=== PATIENT | male | born 1950 | race Caucasian/White ===

== ENCOUNTER → 2016-06-19 | Outpatient (REF) | payer BC, MEDICARE ==
[2016-06-19 19:18] LABS: CALCIUM LEVEL 9.1 MG/DL (8.8-10.2); CREATININE FOR GFR 1.4 MG/DL (0.70-1.30); FREE T4 0.96 NG/DL (0.76-1.46); POTASSIUM SERUM 3.9 MEQ/L (3.5-5.1); URIC ACID 4.2 MG/DL (3.5-7.2)
== END ==
LOC: M LABDRAW1 15:59
PROVIDERS: ATTEND Family Medicine
DX: E11.65 Type 2 diabetes mellitus with hyperglycemia (principal); N18.3 Chronic kidney disease, stage 3 (moderate)

== ENCOUNTER → 2016-07-03 | Outpatient (CLI) | payer MEDICARE ==
--- NOTE | 2016-07-03 11:25 | REP ---
Thyroid ultrasound: The right lobe is upper normal size measuring 4.9 x 2.2 x 1.3 cm. The left lobe is enlarged measuring 5.4 x 2.3 x 2.3 cm. The isthmus is thickened measuring 7.9 mm. Right lobe: There are two nodules, one at the mid pole measuring up to 1.4 cm and one just inferior to this measuring 0.4 cm. Left lobe: There are at least four nodules, two in the upper pole measuring 0.3 cm and 0.5 cm, one at the mid pole measuring 2.1 cm (complex) and one in the lower pole measuring 1.5 cm. Isthmus: There is a 0.4 cm nodule. Impression: Enlarged thyroid with multiple nodules compatible with the clinical impression. Signed by Thor Pérez MD 07/03/2016 11:16 A
== END ==
LOC: M RAD 09:28
PROVIDERS: ATTEND Family Medicine
DX: E04.2 Nontoxic multinodular goiter (principal)

== ENCOUNTER → 2016-11-11 | Outpatient (CLI) | payer MEDICARE ==
[2016-11-11 17:58] LABS: CALCIUM LEVEL 8.9 MG/DL (8.8-10.2); CREATININE FOR GFR 1.43 MG/DL (0.70-1.30); FREE T4 1.05 NG/DL (0.76-1.46); GLOMERULAR FILTRATION RATE 52.5 (>49); POTASSIUM SERUM 3.8 MEQ/L (3.5-5.1)
== END ==
LOC: M WUC 15:43
PROVIDERS: ATTEND Family Medicine
DX: E11.65 Type 2 diabetes mellitus with hyperglycemia (principal); R60.0 Localized edema

== ENCOUNTER → 2016-11-23 | Outpatient (CLI) | payer MEDICARE ==
--- NOTE | 2016-11-23 17:32 | REP ---
Chest x-ray: Two views: History: Meniscal tear. Comparison study: 04/24/2005. Findings: A levoconvex moderate scoliotic curve is seen in the thoracic spine along with some degenerative change. The heart is not enlarged. Lungs are well inflated and clear. Pleural angles are sharp. Pulmonary vasculature is not increased. No other bony abnormality. Impression: Levoconvex thoracic scoliotic curve. Otherwise no active disease. Signed by Madi Mathew MD 11/24/2016 08:30 A
== END ==
LOC: M RAD 16:01
PROVIDERS: ATTEND Family Medicine
DX: R05 Cough (principal); S83.206A Unspecified tear of unspecified meniscus, current injury, right knee, initial encounter; Y93.9 Activity, unspecified; X58.XXXA Exposure to other specified factors, initial encounter; Y92.89 Other specified places as the place of occurrence of the external cause

== ENCOUNTER → 2016-12-08 | Outpatient (REF) | payer MEDICARE | LOC: M LAB REF 11:28 | PROVIDERS: ATTEND Internal Medicine Endocrinology, Diabetes & Metabolism | DX: E04.2 Nontoxic multinodular goiter (principal) ==

== ENCOUNTER → 2017-01-23 | Outpatient (CLI) | payer MEDICARE ==
[2017-01-23 19:40] LABS: BASO # 0.1 10^3/uL (0.0-0.2); BASO % 0.5 % (0.0-1.0); EOS # 0.3 10^3/uL (0.0-0.50); EOS % 2.6 % (0.0-3.0); IMMATURE GRANULOCYTE % 0.6 % (0-0); LYMPH # 3.2 10^3/uL (1.5-4.5); LYMPH % 31.9 % (24.0-44.0); MEAN CORPUSCULAR HGB CONC 35.4 g/dl (32.0-36.5); MEAN CORPUSCULAR VOLUME 81.8 fl (80.0-96.0); MONO # 0.8 10^3/uL (0.0-0.8); MONO % 7.6 % (0.0-5.0); NEUTROPHILS # 5.7 10^3/uL (1.8-7.7); NEUTROPHILS % 56.8 % (36.0-66.0); PLATELET COUNT, AUTOMATED 162 10^3/uL (150-450); RED CELL DISTRIBUTION WIDTH 12.5 % (11.5-14.5)
[2017-01-23 20:06] LABS: ALBUMIN 3.7 GM/DL (3.2-5.2); ALBUMIN/GLOBULIN RATIO 1.09 (1.00-1.93); BILIRUBIN,TOTAL 0.4 MG/DL (0.2-1.0); CALCIUM LEVEL 9.6 MG/DL (8.8-10.2); CREATININE FOR GFR 1.42 MG/DL (0.70-1.30); GLOMERULAR FILTRATION RATE 52.9 (>49); MAGNESIUM LEVEL 2.1 MG/DL (1.8-2.4); POTASSIUM SERUM 4.2 MEQ/L (3.5-5.1); TOTAL PROTEIN 7.1 GM/DL (6.4-8.2)
== END ==
LOC: M WUC 16:16
PROVIDERS: ATTEND Family Medicine
DX: R53.82 Chronic fatigue, unspecified (principal); E11.65 Type 2 diabetes mellitus with hyperglycemia

== ENCOUNTER → 2017-08-28 | Outpatient (CLI) | payer MEDICARE | LOC: M RAD 14:38 | DX: R07.81 Pleurodynia (principal) | CPT/HCPCS: 72072 ==

== ENCOUNTER → 2017-09-27 | Outpatient (CLI) | payer MEDICARE | LOC: M RAD 07:27 | DX: N43.3 Hydrocele, unspecified (principal); N28.1 Cyst of kidney, acquired | CPT/HCPCS: 76705 ==

== ENCOUNTER → 2017-11-01 | Outpatient (CLI) | payer MEDICARE | LOC: M RAD 17:09 | DX: M25.462 Effusion, left knee (principal) | CPT/HCPCS: 73564 ==

== ENCOUNTER → 2017-11-05 | Outpatient (CLI) | payer MEDICARE ==
[~2017-11-05] MED LIST: BUPIVACAINE HCL 0.25% 10 ML VIAL As Ordered; BUPIVACAINE HCL 0.25% 30 ML VIAL As Ordered; TRIAMCINOLONE ACETONIDE SUSP 40 MG/ML VIAL (J3301) As Ordered; diazePAM 5 MG TAB As Ordered; oxyCODONE 5MG TAB As Ordered
== END ==
LOC: M PAIN 14:45
DX: M79.1 Myalgia (principal); M54.5 Low back pain; N40.1 Benign prostatic hyperplasia with lower urinary tract symptoms; E11.9 Type 2 diabetes mellitus without complications; R32 Unspecified urinary incontinence; N32.89 Other specified disorders of bladder; Z79.82 Long term (current) use of aspirin; Z79.84 Long term (current) use of oral hypoglycemic drugs; Z79.899 Other long term (current) drug therapy
CPT/HCPCS: J3301

== ENCOUNTER → 2017-11-14 | Outpatient (CLI) | payer MEDICARE ==
[2017-11-14 20:54] LABS: PSA SCREENING 0.88 NG/ML (< 4.0)
== END ==
LOC: M LAB 15:52
DX: Z12.5 Encounter for screening for malignant neoplasm of prostate (principal)
CPT/HCPCS: G0103

== ENCOUNTER → 2017-11-14 | Outpatient (CLI) | payer MEDICARE | LOC: M RAD 14:28 | DX: M51.34 Other intervertebral disc degeneration, thoracic region (principal); M25.78 Osteophyte, vertebrae; Z12.5 Encounter for screening for malignant neoplasm of prostate | CPT/HCPCS: 72146 ==

== ENCOUNTER → 2017-11-21 | Outpatient (CLI) | payer MEDICARE | LOC: M PAIN 13:30 | DX: R07.81 Pleurodynia (principal); M79.1 Myalgia; M94.0 Chondrocostal junction syndrome [Tietze]; E11.9 Type 2 diabetes mellitus without complications; Z79.82 Long term (current) use of aspirin; Z79.84 Long term (current) use of oral hypoglycemic drugs; Z79.899 Other long term (current) drug therapy | CPT/HCPCS: G0463 ==

== ENCOUNTER → 2017-12-05 | Outpatient (REF) | payer MEDICARE ==
[2017-12-05 20:12] LABS: CRYSTALS, BODY FLUID NONE SEEN (NONE SEEN); SOURCE, BODY FLUID CRYSTALS LFT KNEE
== END ==
LOC: M SFHCPLAZ 19:02
DX: M25.462 Effusion, left knee (principal)
CPT/HCPCS: 89060

== ENCOUNTER → 2018-02-05 | Outpatient (REF) | payer MEDICARE ==
[2018-02-05 13:51] LABS: ANION GAP 12 MEQ/L (8-16); BLOOD UREA NITROGEN 22 MG/DL (7-18); CALCIUM LEVEL 9.9 MG/DL (8.8-10.2); CARBON DIOXIDE LEVEL 22 MEQ/L (21-32); CHLORIDE LEVEL 103 MEQ/L (98-107); CREATININE FOR GFR 1.17 MG/DL (0.70-1.30); GLOMERULAR FILTRATION RATE > 60.0 (>49); GLUCOSE, FASTING 151 MG/DL (70-100); POTASSIUM SERUM 3.7 MEQ/L (3.5-5.1); SODIUM LEVEL 137 MEQ/L (136-145)
[2018-02-05 13:54] LABS: MALB URINE SIEMENS 10.3 MG/L
[2018-02-05 14:02] LABS: MAU/CREAT RATIO 5.3 MCG/MG (0.0-30.0)
[2018-02-05 14:38] LABS: ESTIMATED AVERAGE GLUCOSE 146 MG/DL (60-110); HEMOGLOBIN A1c 6.7 %
== END ==
LOC: M SFHCPLAZ 10:32
DX: E11.22 Type 2 diabetes mellitus with diabetic chronic kidney disease (principal); Z23 Encounter for immunization
CPT/HCPCS: 83036

== ENCOUNTER → 2018-07-08 | Outpatient (CLI) | payer MEDICARE ==
[2018-07-08 15:58] LABS: CALCIUM LEVEL 9.1 MG/DL (8.8-10.2); CREATININE FOR GFR 1.33 MG/DL (0.70-1.30); GLOMERULAR FILTRATION RATE 56.9 (>49); POTASSIUM SERUM 3.6 MEQ/L (3.5-5.1)
[2018-07-08 16:10] LABS: HEMOGLOBIN A1c 7.5 %
[2018-07-08 17:49] LABS: MALB URINE SIEMENS 9.3 MG/L; MAU/CREAT RATIO 4.5 MCG/MG (0.0-30.0)
== END ==
LOC: M LAB 14:50
PROVIDERS: ATTEND Family Medicine
DX: E11.22 Type 2 diabetes mellitus with diabetic chronic kidney disease (principal)
CPT/HCPCS: 36415; 80048; 82043; 83036; 84403; G0103

== ENCOUNTER → 2019-01-05 | Outpatient (CLI) | payer MEDICARE ==
--- NOTE | 2019-01-05 16:38 | REP ---
PA and lateral chest: Comparison is a 2016. The lung villalobos are hyperinflated. This is unchanged. Lung villalobos otherwise clear. Cardiac size is normal. The jed, mediastinum, skeletal structures are unchanged. There is thoracic scoliosis convex left, unchanged. Impression: There are no acute cardiopulmonary findings. There is chronic hyperinflation. There is chronic thoracic scoliosis convex left. Electronically Signed by Thor Pérez MD 01/05/2019 04:29 P
== END ==
LOC: M LAB 16:03
PROVIDERS: ATTEND Family Medicine
DX: R05 Cough (principal)

== ENCOUNTER → 2019-01-14 | Outpatient (CLI) | payer MEDICARE ==
[~2019-01-14] MED LIST changes: -BUPIVACAINE HCL 0.25% 10 ML VIAL As Ordered; -BUPIVACAINE HCL 0.25% 30 ML VIAL As Ordered; +ISOVUE-370 76% 100ML VIAL (Q9967) As Ordered ONE; -TRIAMCINOLONE ACETONIDE SUSP 40 MG/ML VIAL (J3301) As Ordered; -diazePAM 5 MG TAB As Ordered; -oxyCODONE 5MG TAB As Ordered
[2019-01-14 13:37] LABS: IONIZED CALCIUM 4.9 MG/DL (4.5-5.3)
[2019-01-14 14:08] LABS: BLOOD UREA NITROGEN 24 MG/DL (7-18); C REACTIVE PROTEIN QUANTITATIV < 0.30 MG/DL (0.00-0.30); CALCIUM LEVEL 9.8 MG/DL (8.8-10.2); CARBON DIOXIDE LEVEL 25 MEQ/L (21-32); CHLORIDE LEVEL 105 MEQ/L (98-107); CPK CREATINE PHOSPHOKINASE 71 U/L (39-308); CREATININE FOR GFR 1.65 MG/DL (0.70-1.30); GLOMERULAR FILTRATION RATE 44.3 (>49); GLUCOSE, FASTING 335 MG/DL (70-100); MAGNESIUM LEVEL 1.8 MG/DL (1.8-2.4); SODIUM LEVEL 137 MEQ/L (136-145); TROPONIN I < 0.02 NG/ML (< 0.10)
--- NOTE | 2019-01-14 15:15 | REP ---
CT PULMONARY ANGIOGRAM: WITH IV CONTRAST. HISTORY: Chest pain. Evaluate for pulmonary embolus or dissection. No comparison chest CT. COMPARISON STUDIES: No comparison chest CT. CONTRAST DOSE: 65 mL of Isovue [address] TECHNIQUE: Helical scanning is acquired and overlapping 1.5 mm and contiguous 3 mm axial images are reformatted. In addition, maximum intensity projection and multiplanar re-formation images are generated in sagittal and coronal imaging projections. CT PULMONARY ANGIOGRAPHIC FINDINGS: There is good opacification in the pulmonary arterial tree. No vessel cutoff or filling defect is seen. There is no CT evidence of pulmonary embolism. Thoracic aorta enhances homogeneously without evidence of aneurysm or dissection. There is some vascular calcification in the left coronary artery distribution. There are small bilateral pleural effusions. There is a small fluid collection just posterior to the anterior aspect of the aortic arch, consistent with pericardial recess. No hilar or mediastinal mass is seen. There is a low-density area in the left thyroid lobe which extends into the thoracic inlet. There is a densely calcified nodule in the right thyroid. There is a small sliding hiatal hernia. There is a cyst in the upper pole of the left kidney which measures 4.3 cm in greatest diameter. No adrenal lesion is seen. Incidental note is made of splenomegaly, 15.4 cm in greatest diameter. The liver is felt to be enlarged as well with greater than 17.1 cm vertical span in the midclavicular line extending off the edge of the field of view. No focal hepatic or splenic lesion is seen. No pulmonary mass or significant nodule is appreciated. A levoconvex thoracic scoliosis is seen. IMPRESSION: No CT evidence of pulmonary embolus. Hepatosplenomegaly. Small bilateral pleural effusions. Left renal cyst. Bilateral thyroid nodules. Electronically Signed by Madi Mathew MD 01/14/2019 06:49 P
[2019-01-15 11:08] LABS: HEPATITIS C VIRUS ABY INDEX 0.1 INDEX (<0.8)
== END ==
LOC: M RAD 12:53
PROVIDERS: ATTEND Family Medicine
DX: J90 Pleural effusion, not elsewhere classified (principal); N28.1 Cyst of kidney, acquired; E04.1 Nontoxic single thyroid nodule; M62.81 Muscle weakness (generalized); Z11.59 Encounter for screening for other viral diseases
CPT/HCPCS: 36415; 71275; 80048; 82330; 82550; 83735; 84484; 85379; 85652; 86140; 86803; Q9967

== ENCOUNTER → 2019-01-22 | Outpatient (CLI) | payer MEDICARE ==
[2019-01-22 12:04] LABS: ALBUMIN 3.6 GM/DL (3.2-5.2); ALT/SGPT 49 U/L (12-78); BILIRUBIN,TOTAL 0.6 MG/DL (0.2-1.0); BLOOD UREA NITROGEN 31 MG/DL (7-18); CALCIUM LEVEL 10.1 MG/DL (8.8-10.2); CARBON DIOXIDE LEVEL 26 MEQ/L (21-32); CHLORIDE LEVEL 104 MEQ/L (98-107); CREATININE FOR GFR 1.59 MG/DL (0.70-1.30); GLOMERULAR FILTRATION RATE 46.2 (>49); GLUCOSE, FASTING 288 MG/DL (70-100); NT-PRO BNP 11 PG/ML (<125); SODIUM LEVEL 139 MEQ/L (136-145); TOTAL PROTEIN 7.2 GM/DL (6.4-8.2); TROPONIN I < 0.02 NG/ML (< 0.10)
== END ==
LOC: M LAB 10:16
PROVIDERS: ATTEND Family Medicine
DX: R16.2 Hepatomegaly with splenomegaly, not elsewhere classified (principal); N17.9 Acute kidney failure, unspecified; J90 Pleural effusion, not elsewhere classified; R07.9 Chest pain, unspecified

== ENCOUNTER → 2019-06-11 | Outpatient (REF) | payer MEDICARE | LOC: M LAB REF 19:27 | PROVIDERS: ATTEND Dermatology | DX: D23.30 Other benign neoplasm of skin of unspecified part of face (principal) ==

== ENCOUNTER → 2019-06-19 | Outpatient (CLI) | payer MEDICARE ==
--- NOTE | 2019-06-19 13:32 | REP ---
PANOREX MANDIBLE: SINGLE VIEW. HISTORY: Comparison is made with CT images of the soft tissues of the neck from July 03, 2017. FINDINGS: Heavily eroded carious teeth are noted in the mandible and maxilla. There are eight remaining mandibular teeth all of which are eroded to one degree or another. There are six remain maxillary teeth visible which are also heavily eroded. There is subtle radiolucency associated with the left mandibular canine and first bicuspid tooth roots. No other bony destructive lesion is visible. IMPRESSION: Multiple carious teeth. Small periapical radiolucencies associated with two of the mandibular teeth on the left. Electronically Signed by Madi Mathew MD 06/19/2019 02:54 P
== END ==
LOC: M RAD 11:37
PROVIDERS: ATTEND Dermatology
DX: K04.6 Periapical abscess with sinus (principal); Z79.899 Other long term (current) drug therapy

== ENCOUNTER → 2019-06-19 | Outpatient (REF) | payer MEDICARE ==
[2019-06-19 12:33] LABS: MALB URINE SIEMENS 8.1 MG/L; MAU/CREAT RATIO 6.6 MCG/MG (0.0-30.0)
[2019-06-19 14:03] LABS: ALBUMIN 3.6 GM/DL (3.2-5.2); ALT/SGPT 45 U/L (12-78); BLOOD UREA NITROGEN 17 MG/DL (7-18); CALCIUM LEVEL 9.3 MG/DL (8.8-10.2); CARBON DIOXIDE LEVEL 28 MEQ/L (21-32); CHLORIDE LEVEL 107 MEQ/L (98-107); CREATININE FOR GFR 1.14 MG/DL (0.70-1.30); GLOMERULAR FILTRATION RATE > 60.0 (>49); GLUCOSE, FASTING 207 MG/DL (70-100); LIPASE 247 U/L (73-393); NT-PRO BNP 33 PG/ML (<125); POTASSIUM SERUM 3.6 MEQ/L (3.5-5.1); SODIUM LEVEL 139 MEQ/L (136-145); TOTAL PROTEIN 6.9 GM/DL (6.4-8.2)
[2019-06-19 14:06] LABS: TESTOSTERONE 331 NG/DL (241-827)
[2019-06-19 14:12] LABS: HEMOGLOBIN A1c 8.2 %
[2019-06-20 10:12] LABS: HEPATITIS C VIRUS ABY INDEX 0.1 INDEX (<0.8)
== END ==
LOC: M SFHCPLAZ 10:08
PROVIDERS: ATTEND Family Medicine
DX: R05 Cough (principal); E11.22 Type 2 diabetes mellitus with diabetic chronic kidney disease; N32.81 Overactive bladder; Z13.228 Encounter for screening for other metabolic disorders; Z11.59 Encounter for screening for other viral diseases; R53.82 Chronic fatigue, unspecified

== ENCOUNTER → 2019-09-22 | Outpatient (CLI) | payer MEDICARE ==
[2019-09-22 17:08] LABS: HEMOGLOBIN A1c 7.3 %
[2019-09-22 17:15] LABS: CALCIUM LEVEL 9.9 MG/DL (8.8-10.2); CREATININE FOR GFR 1.3 MG/DL (0.70-1.30); GLOMERULAR FILTRATION RATE 58.1 (>42); POTASSIUM SERUM 3.9 MEQ/L (3.5-5.1)
== END ==
LOC: M LAB 16:00
PROVIDERS: ATTEND Family Medicine
DX: E11.22 Type 2 diabetes mellitus with diabetic chronic kidney disease (principal)

== ENCOUNTER → 2020-02-17 | Outpatient (REF) | payer MEDICARE | LOC: M SFHCPLAZ 16:40 | PROVIDERS: ATTEND Family Medicine | DX: N40.0 Benign prostatic hyperplasia without lower urinary tract symptoms (principal); E11.9 Type 2 diabetes mellitus without complications ==

== ENCOUNTER → 2020-05-14 | Outpatient (CLI) | payer MEDICARE ==
[2020-05-14 15:42] LABS: HEMOGLOBIN A1c 6.3 %
[2020-05-14 15:45] LABS: CALCIUM LEVEL 9.8 MG/DL (8.8-10.2); CREATININE FOR GFR 1.41 MG/DL (0.70-1.30); GLOMERULAR FILTRATION RATE 52.9 (>42); POTASSIUM SERUM 3.6 MEQ/L (3.5-5.1)
[2020-05-14 15:55] LABS: MALB URINE SIEMENS 22.8 MG/L; MAU/CREAT RATIO 5.3 MCG/MG (0.0-30.0)
== END ==
LOC: M LAB 14:46
PROVIDERS: ATTEND Family Medicine
DX: N40.0 Benign prostatic hyperplasia without lower urinary tract symptoms (principal); E11.9 Type 2 diabetes mellitus without complications
CPT/HCPCS: 36415; 80048; 80061; 82043; 83036; G0103

== ENCOUNTER → 2020-05-18 | Outpatient (REF) | payer MEDICARE | LOC: M SFHCPLAZ 14:41 | PROVIDERS: ATTEND Family Medicine | DX: E11.9 Type 2 diabetes mellitus without complications (principal) ==

== ENCOUNTER → 2020-08-18 | Outpatient (CLI) | payer MEDICARE ==
[2020-08-18 15:33] LABS: HEMOGLOBIN A1c 6.3 %
[2020-08-18 15:41] LABS: BLOOD UREA NITROGEN 20 MG/DL (7-18); CALCIUM LEVEL 9.3 MG/DL (8.8-10.2); CARBON DIOXIDE LEVEL 25 MEQ/L (21-32); CHLORIDE LEVEL 109 MEQ/L (98-107); CREATININE FOR GFR 1.18 MG/DL (0.70-1.30); GLOMERULAR FILTRATION RATE > 60.0 (>42); GLUCOSE, FASTING 145 MG/DL (70-100); SODIUM LEVEL 142 MEQ/L (136-145)
== END ==
LOC: M LAB 14:45
PROVIDERS: ATTEND Family Medicine
DX: E11.9 Type 2 diabetes mellitus without complications (principal)

== ENCOUNTER → 2020-10-18 | Outpatient (CLI) | payer MEDICARE ==
--- NOTE | 2020-10-18 15:17 | REP ---
INDICATION: OTHER CHEST PAIN. COMPARISON: Comparison chest x-ray January 05, 2019. TECHNIQUE: Two views.. FINDINGS: The lungs are well inflated and free of infiltrate. The pleural angles are sharp. The heart size is normal. Pulmonary vasculature is not increased. No significant bony abnormality is seen. There are degenerative disc changes and some scoliosis in the thoracic spine. IMPRESSION: No active disease.. <Electronically signed by Juventino Mathew > 10/18/20 [id number]
--- NOTE | 2020-10-18 15:24 | REP ---
INDICATION: OTHER CHEST PAIN. COMPARISON: Comparison chest x-ray January 05, 2019.. TECHNIQUE: Four views of the left ribcage. FINDINGS: There is a levoconvex thoracic scoliotic curve and there is degenerative disc disease in the mid and lower thoracic spine with fairly large osteophytes. Heart is not enlarged. Left lung is clear. There is osteoarthritis at the glenohumeral articulation of the left shoulder. Multiple views of the left ribcage demonstrate intact left ribs. No bony destructive lesion or rib fracture is seen. IMPRESSION: Scoliosis, degenerative disc disease in the thoracic spine, osteoarthritis of the left glenohumeral joint. Otherwise negative left rib radiographs. <Electronically signed by Juventino Mathew > 10/18/20 [id number]
== END ==
LOC: M PLAIMG 12:02
PROVIDERS: ATTEND Family Medicine
DX: M41.9 Scoliosis, unspecified (principal); M51.34 Other intervertebral disc degeneration, thoracic region; R07.89 Other chest pain

== ENCOUNTER → 2020-10-18 | Outpatient (REF) | payer MEDICARE | LOC: M SFHCPLAZ 11:22 | PROVIDERS: ATTEND Family Medicine | DX: E11.9 Type 2 diabetes mellitus without complications (principal); Z12.5 Encounter for screening for malignant neoplasm of prostate ==

== ENCOUNTER → 2021-01-05 | Outpatient (CLI) | payer MEDICARE ==
[2021-01-05 18:40] LABS: HEMOGLOBIN A1c 6.2 %
== END ==
LOC: M LAB 13:31
PROVIDERS: ATTEND Family Medicine
DX: Z12.5 Encounter for screening for malignant neoplasm of prostate (principal); E11.9 Type 2 diabetes mellitus without complications
CPT/HCPCS: 36415; 83036; G0103

== ENCOUNTER → 2021-08-11 | Outpatient (CLI) | payer MEDICARE ==
[2021-08-11 17:21] LABS: HEMOGLOBIN A1c 8.1 %
== END ==
LOC: M PLALAB 15:23
PROVIDERS: ATTEND Family Medicine
DX: M25.761 Osteophyte, right knee (principal); M25.762 Osteophyte, left knee; M51.37 Other intervertebral disc degeneration, lumbosacral region; E11.9 Type 2 diabetes mellitus without complications; M17.0 Bilateral primary osteoarthritis of knee; M76.32 Iliotibial band syndrome, left leg; Z12.5 Encounter for screening for malignant neoplasm of prostate
CPT/HCPCS: 36415; 72110; 73502; 73564; 83036; G0103

== ENCOUNTER → 2021-11-01 | Outpatient (CLI) | payer MEDICARE ==
[2021-11-01 15:04] LABS: ALBUMIN 3.4 GM/DL (3.2-5.2); BILIRUBIN,TOTAL 0.6 MG/DL (0.2-1.0); CALCIUM LEVEL 9.4 MG/DL (8.8-10.2); CREATININE FOR GFR 1.29 MG/DL (0.70-1.30); GLOMERULAR FILTRATION RATE 58.3 (>42); POTASSIUM SERUM 3.5 MEQ/L (3.5-5.1); TOTAL PROTEIN 6.6 GM/DL (6.4-8.2)
== END ==
LOC: M LAB 13:16
PROVIDERS: ATTEND Student in an Organized Health Care Education/Training Program
DX: R82.2 Biliuria (principal)

== ENCOUNTER → 2021-11-15 | Outpatient (CLI) | payer MEDICARE ==
[2021-11-15 15:21] LABS: BASO # 0.1 10^3/uL (0.0-0.2); BASO % 0.8 % (0.0-1.0); EOS # 0.2 10^3/uL (0.0-0.5); EOS % 2.6 % (0.0-3.0); HEMATOCRIT 41.9 % (42.0-52.0); HEMOGLOBIN 14.6 g/dl (13.5-17.5); LYMPH # 2.9 10^3/uL (1.5-5.0); LYMPH % 33.1 % (24.0-44.0); MEAN CORPUSCULAR HEMOGLOBIN 28.7 pg (27.0-33.0); MEAN CORPUSCULAR HGB CONC 34.8 g/dl (32.0-36.5); MEAN CORPUSCULAR VOLUME 82.3 fl (80.0-96.0); MONO # 0.7 10^3/uL (0.0-0.8); MONO % 8.4 % (2.0-8.0); NEUTROPHILS # 4.8 10^3/uL (1.5-8.5); NEUTROPHILS % 54.3 % (36.0-66.0); PLATELET COUNT, AUTOMATED 128 10^3/uL (150-450); RED BLOOD COUNT 5.09 10^6/uL (4.30-6.10); WHITE BLOOD COUNT 8.8 10^3/uL (4.0-10.0)
[2021-11-15 15:25] LABS: HEMOGLOBIN A1c 8.6 %
[2021-11-15 15:46] LABS: ALBUMIN 3.6 GM/DL (3.2-5.2); BILIRUBIN,TOTAL 0.6 MG/DL (0.2-1.0); CALCIUM LEVEL 9.9 MG/DL (8.8-10.2); CHOLESTEROL RISK RATIO 4.607 (<5); CREATININE FOR GFR 1.27 MG/DL (0.70-1.30); GLOMERULAR FILTRATION RATE 59.3 (>42); POTASSIUM SERUM 3.9 MEQ/L (3.5-5.1); TOTAL PROTEIN 6.7 GM/DL (6.4-8.2)
[2021-11-15 16:06] LABS: MALB URINE SIEMENS 48.1 MG/L; MAU/CREAT RATIO 27.4 MCG/MG (0.0-30.0)
== END ==
LOC: M PLALAB 10:55
PROVIDERS: ATTEND Student in an Organized Health Care Education/Training Program
DX: Z00.00 Encounter for general adult medical examination without abnormal findings (principal); Z13.220 Encounter for screening for lipoid disorders; E11.9 Type 2 diabetes mellitus without complications